=== PATIENT | female | born 1975 | race Caucasian/White ===

== ENCOUNTER 2021-10-22 19:04 | Emergency (ER) | payer BC, SELFPAY ==
[2021-10-22 19:08] VITALS: BP 231/140; PULSE 80; RESP 16; TEMP 36.8; O2SAT 100; BMI 24.7
--- NOTE | 2021-10-22 19:23 | ECG_ITS ---
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 Measurements Intervals [place] Rate: 76 P: 65 MD: 167 QRS: 71 QRSD: 89 T: 46 QT: 421 QTc: 473 Interpretive Statements SINUS RHYTHM LEFT ATRIAL ENLARGEMENT [-0.15mV P-WAVE IN V1/V2] NONSPECIFIC T-WAVE ABNORMALITY No previous ECG available for comparison Electronically Signed On 10-23-2021 13:18:09 CDT by Jamel Gibbons M.D. [email or web address]
--- NOTE | 2021-10-22 19:46 | XRR_ITS ---
PROCEDURE INFORMATION: Exam: XR Chest Exam date and time: 10/22/2021 8:00 PM Age: 46 years old Clinical indication: Other: HTN; Additional info: HTN urgency TECHNIQUE: Imaging protocol: Radiologic exam of the chest. Views: 1 view. COMPARISON: No relevant prior studies available. FINDINGS: Lungs: No consolidation. Pleural spaces: Unremarkable. No pleural effusion. No pneumothorax. Heart/Mediastinum: No cardiomegaly. Bones/joints: No acute findings. XR/XR chest 1V portable [id number] IMPRESSION: No acute findings.
--- NOTE | 2021-10-22 19:46 | CTR_ITS ---
PROCEDURE INFORMATION: Exam: CT Head Without Contrast Exam date and time: 10/22/2021 7:58 PM Age: 46 years old Clinical indication: Pain; Headache; Additional info: Headache, HTN urgency TECHNIQUE: Imaging protocol: Computed tomography of the head without contrast. Radiation optimization: All CT scans at this facility use at least one of these dose optimization techniques: automated exposure control; mA and/or kV adjustment per patient size (includes targeted exams where dose is matched to clinical indication); or iterative reconstruction. COMPARISON: CT head wo/w con [id number] 04/30/2018 11:30 AM RADIATION DOSE METRICS: Total DLP (mGy-cm): 990.48 FINDINGS: Brain: Normal. No hemorrhage. Unremarkable white matter. No mass effect. Cerebral ventricles: No ventriculomegaly. Paranasal sinuses: Visualized sinuses are unremarkable. No fluid levels. Mastoid air cells: Visualized mastoid air cells are well aerated. Bones/joints: Unremarkable. No acute fracture. Soft tissues: Unremarkable. CT/CT head wo con* [id number] IMPRESSION: No acute intracranial abnormality.
[2021-10-22 20:00] VITALS: BP 212/132; PULSE 72; RESP 18
[2021-10-22] MEDS: amlodipine 10 mg Tablet PO (20:09)
[2021-10-22 20:11] VITALS: RESP 18
[2021-10-22] MEDS: morphine 4 mg/mL SDV 1 mL IVP (20:11)
[2021-10-22] MEDS: enalaprilat 1.25 mg/mL Inj IVP (20:11)
[2021-10-22] MEDS: ondansetron 2 mg/ML SDV 2 mL 4 MG IVP (20:11)
[2021-10-22] MEDS: labetalol 5 mg/mL SDV 20mL 20 MG IVP (20:18)
[2021-10-22 20:27] LABS: Basophils % 0.3 %; Eosinophils % 0.4 %; Hematocrit 40.7 % (37.0-47.0); Hemoglobin 13.6 g/dL (11.5-15.3); Lymphocytes # 1.3 10^3/uL (0.8-4.8); Lymphocytes % 12.6 %; Mean Corpuscular HGB Conc 33.4 g/dL (30.0-36.0); Mean Corpuscular Hemoglobin 26.4 pg (28.0-34.0); Mean Platelet Volume 9.4 fL (7.4-10.4); Monocytes # 0.4 10^3/uL (0.2-0.9); Monocytes % 4.4 %; Neutrophils # 8.17 10^3/uL (1.8-7.7); Neutrophils % 81.8 %; Nucleated Red Blood Cells % 0 %; Platelet Count 306 10^3/cmm (130-400); Red Blood Count 5.15 10^6/uL (4.1-5.3); Red Cell Distribution Width 13.9 % (12.1-15.1)
[2021-10-22 20:45] LABS: Alanine Aminotransferase 13 U/L (0-33); Albumin Level 4.4 g/dL (3.5-5.2); Alkaline Phosphatase 83 U/L (35-105); Anion Gap 15.1 (5-19); Aspartate Amino Transferase 21 U/L (0-32); Blood Urea Nitrogen 13 mg/dL (6-20); Calcium 9.6 mg/dL (8.5-10.5); Carbon Dioxide 25 mmol/L (22-29); Chloride 94 mmol/L (98-107); Globulin 3.8 g/dL (1.3-4.6); Glomerular Filtration Rate 77.9 mL/min (90-130); Glucose 120 mg/dL (65-115); Osmolality Calculated 273 mOsm/kg (285-295); Potassium 3.1 mmol/L (3.5-5.1); Sodium 131 mmol/L (136-145); Total Bilirubin 0.7 mg/dL (0.15-1.2); Total Protein 8.2 g/dL (6.6-8.7)
[2021-10-22 21:24] VITALS: BP 163/101; PULSE 67; RESP 14
--- NOTE | 2021-10-22 21:50 | W.ED.HA ---
HPI - Headache General: Chief Complaint: Headache Stated Complaint: high bp Time Seen by Provider: 10/22/21 19:31 History of Present Illness: 46-year-old female with a history of hypertension. She ran out of her medications over a month ago. Today she felt tired, not well, and had a significant headache. She vomited at home. She was seen in urgent care, and sent here, because her blood pressure was significantly high. Here, her blood pressure is 263/140. She continues to complain of a headache. No more vomiting. No weakness. No visual changes. No chest pain. No shortness of breath. MD elicited complaint: headache Pertinent past history: hypertension Onset (ago): hour(s) Onset description: gradually Location: frontal and occipital Quality & Timing: aching and constant Exacerbating factors: none Relieving factors: nothing Context: occurred at rest Associated symptoms: Reports nausea and vomiting; Deny chest pain, confusion, cough, fever(s), lightheadedness, neck stiffness, numbness, short of breath or weakness Treatments prior to arrival: other (aleve) Review of Systems Const: Denies: fever(s) Eyes: Denies: change in vision Card: Denies: chest pain or lightheadedness Resp: Denies: dyspnea, productive cough or non-productive cough GI: Reports: nausea and vomiting Neuro: Denies: confusion [facility] Female Reproductive History: Date of last menstrual period: 10/08/21 Physical Exam Const: COMMON NORMALS: no acute distress GENERAL APPEARANCE: cooperative and ill appearing (mildly); not frail appearing HENMT: COMMON NORMALS: normocephalic, atraumatic and Normal external nose present HEAD & SCALP: normocephalic and atraumatic FACE & SINUS: normal facial exam and face symmetric NOSE: Normal external nose present Eye: COMMON NORMALS: Equal, round and reactive pupils present and EOMs intact bilaterally PUPIL: Yes Equal, round and reactive pupils present Neck/C-Spine: GENERAL: Yes trachea midline Chest: CHEST: Yes Symmetrical chest wall rise Resp: COMMON NORMALS: normal respiratory effort, No retractions, No use of accessory muscles and clear to auscultation bilaterally AUSCULTATION: clear to auscultation bilaterally Cardio: COMMON NORMALS: regular rate and regular rhythm RATE: regular rate RHYTHM: regular rhythm GI: COMMON NORMALS: Normal to inspection, nondistended, normoactive bowel sounds present Extremity: COMMON NORMALS: no pedal edema Neuro: VIVI COMA SCALE: document GCS findings [place] coma scale eye opening: Spontaneous Vivi coma scale verbal response: Orientated [place] coma scale motor response: Obey commands Vivi coma scale total score: 15 SENSORY EXAM: Yes extremities (intact) Psych: COMMON NORMALS: speech normal SPEECH: Yes normal speech Skin: COMMON NORMALS: no rashes or lesions noted GENERAL SKIN EXAM: no rashes or lesions noted Course Vital Signs: Vital signs: Vital Signs Temperature 98.2 F 10/22/21 19:08 Pulse Rate 70 10/22/21 22:01 Respiratory Rate 13 10/22/21 22:01 Blood Pressure 150/91 10/22/21 22:01 Pulse Oximetry 100 10/22/21 19:08 Oxygen Delivery Me thod 10/22/21 19:08 MDM - Headache Medical Decision Making Head CT is negative. Chest x-ray is negative. Potassium is mildly low. BMP is otherwise not remarkable. CBC not remarkable. Blood pressure came down from 260 systolic to 160 systolic. Headache is resolved. She has no other neurological findings. She will be placed back on her blood pressure medication, prescription are made for her. She will check her blood pressure twice daily, and report numbers to her doctor. she knows to return for any return of her symptoms Lab Data : 10/22/21 20:10 10/22/21 20:10 Radiology Impressions Chest X-Ray 10/22/21 19:46 IMPRESSION: No acute findings. Head CT 10/22/21 19:46 IMPRESSION: No acute intracranial abnormality. Laboratory Results WBC 10.0 10^3/uL (4.0-10.0) 10/22/21 20:10 RBC 5.15 10^6/uL (4.1-5.3) 10/22/21 20:10 Hgb 13.6 g/dL (11.5-15.3) 10/22/21 20:10 Hct 40.7 % (37.0-47.0) 10/22/21 20:10 MCV 79.0 fl (81-99) L 10/22/21 20:10 MCH 26.4 pg (28.0-34.0) L 10/22/21 20:10 MCHC 33.4 g/dL (30.0-36.0) 10/22/21 20:10 RDW 13.9 % (12.1-15.1) 10/22/21 20:10 Plt Count 306 10^3/cmm (130-400) 10/22/21 20:10 MPV 9.4 fL (7.4-10.4) 10/22/21 20:10 Neut % (Auto) 81.8 % 10/22/21 20:10 Lymph % (Auto) 12.6 % 10/22/21 20:10 [place] % (Auto) 4.4 % 10/22/21 20:10 Eos % (Auto) 0.4 % 10/22/21 20:10 Baso % (Auto) 0.3 % 10/22/21 20:10 Neut # (Auto) 8.17 10^3/uL (1.8-7.7) H 10/22/21 20:10 Lymph # (Auto) 1.3 10^3/uL (0.8-4.8) 10/22/21 20:10 [place] # (Auto) 0.4 10^3/uL (0.2-0.9) 10/22/21 20:10 Eos # (Auto) 0.0 10^3/uL (0.0-0.8) 10/22/21 20:10 Baso # (Auto) 0.0 10^3/uL (0.0-0.1) 10/22/21 20:10 Nucleated RBC % (auto) 0 % 10/22/21 20:10 Nucleated RBCs # 0.0 /100WBC 10/22/21 20:10 Sodium 131 mmol/L (136-145) L 10/22/21 20:10 Potassium 3.1 mmol/L (3.5-5.1) L 10/22/21 20:10 Chloride 94 mmol/L (98-107) L 10/22/21 20:10 Carbon Dioxide 25 mmol/L (22-29) 10/22/21 20:10 Anion Gap 15.1 (5-19) 10/22/21 20:10 BUN 13 mg/dL (6-20) 10/22/21 20:10 Creatinine 0.8 mg/dL (0.5-0.9) 10/22/21 20:10 GFR Calculation 77.9 mL/min (90-130) L 10/22/21 20:10 Glucose 120 mg/dL (65-115) H 10/22/21 20:10 Calculated Osmolality 273 mOsm/kg (285-295) L 10/22/21 20:10 Calcium 9.6 mg/dL (8.5-10.5) 10/22/21 20:10 Magnesium 2.0 mg/dL (1.7-2.3) 10/22/21 20:10 Total Bilirubin 0.7 mg/dL (0.15-1.2) 10/22/21 20:10 AST 21 U/L (0-32) 10/22/21 20:10 ALT 13 U/L (0-33) 10/22/21 20:10 Alkaline Phosphatase 83 U/L (35-105) 10/22/21 20:10 Total Protein 8.2 g/dL (6.6-8.7) 10/22/21 20:10 Albumin 4.4 g/dL (3.5-5.2) 10/22/21 20:10 Globulin 3.8 g/dL (1.3-4.6) 10/22/21 20:10 Discharge Plan Discharge Patient Disposition: Home Clinical Impression: Hypertensive urgency Condition: Stable Prescriptions: New irbesartan 150 mg tablet 150 mg PO DAILY Qty: 30 0RF hydrochlorothiazide 25 mg tablet 25 mg PO DAILY Qty: 30 0RF metoprolol tartrate 25 mg tablet 25 mg PO BID Qty: 60 0RF Discharge Orders: Discharge ED (Routine); Ordered 10/22/21 Ordered By: Baldev Khan Referrals: Igor Mariano MD [Primary Care Provider] - 4-7 days Patient Instructions: Hypertensive Crisis (ED) Activity Restrictions/Additional Instructions: Return for worsening headache, chest discomfort, mental status changes, vision changes, any other concerning symptoms. Fill your medications as directed. After taking your medication tomorrow, check your blood pressure twice daily, and report numbers to your physician next week. 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
[2021-10-22 22:01] VITALS: BP 150/91; PULSE 70; RESP 13
== END 2021-10-22 22:02 | disposition home or self-care (01) ==
PROVIDERS: Emergency Provider Emergency Medicine; PCP Family Medicine
DX: I16.0 Hypertensive urgency (principal); Z20.822 Contact with and (suspected) exposure to COVID-19
CPT/HCPCS: 70450; 71045; 80053; 83735; 85025; 87426; 93005; 96374; 96375; 99285; J2270; J2405; J3490

== ENCOUNTER 2021-10-23 06:15 | Observation (INO) | payer BC, SELFPAY ==
[2021-10-23] VITALS (8 sets, daily range): BP systolic 134–164; BP diastolic 78–103; PULSE 62–84; RESP 15–18; TEMP 36.4–37.1; O2SAT 95–99; BMI 24.7
--- NOTE | 2021-10-23 06:29 | ED_ITS ---
HPI - Weakness General: Chief complaint: Weakness Stated complaint: Nausea and weakness Time Seen by Provider: 10/23/21 06:17 History of Present Illness: 46-year-old female presents with generalized weakness. Nausea and vomiting. Patient had an episode last night where she was just weak and collapsed after vomiting. She just feels really weak and is having hard time getting up. Patient was seen last night in the ER with some nausea and vomiting and at that time her blood pressure was in the 260s. She was discharged home her blood pressure was in the 160s and she was feeling fine. Throughout the night she had gotten up when had the episode just really weak and collapsing. She had a crawl to the hallway because she was just too weak to stand. She continues to just have the generalized weakness upon arrival. She denies any headache, chest pain, fever, chills. Associated symptoms: Reports nausea and vomiting; Denies chest pain, chills, dysuria, fever(s) or headache(s) Review of Systems Const: Reports: malaise; Denies: fever(s) or chills Eyes: Denies: change in vision or blurry vision ENMT: Denies: throat pain Card: Denies: chest pain, palpitations or irregular heart rhythm Resp: Denies: dyspnea, productive cough or chest congestion GI: Reports: nausea and vomiting; Denies: abdominal pain or diarrhea : Denies: flank pain, difficulty voiding or dysuria Musc: Denies: neck pain or back pain Skin/Breast: Denies: rash or erythema Neuro: Reports: other (Generalized weakness); Denies: headache(s) or numbness in extremities Psych: Denies: anxiety or depression All/Imm: Denies: urticaria [facility] Female Reproductive History: Date of last menstrual period: 10/08/21 Physical Exam Const: COMMON NORMALS: patient oriented x3 and no limitations GENERAL APPEARANCE: other (Not feeling well, ) HENMT: COMMON NORMALS: normocephalic, atraumatic, hearing grossly normal bilaterally and moist oral mucous membranes HEAD & SCALP: normal to inspection, normocephalic and atraumatic Eye: COMMON NORMALS: Equal, round and reactive pupils present and EOMs intact bilaterally PUPIL: Yes Equal, round and reactive pupils present Neck/C-Spine: COMMON NORMALS: full ROM, no lymphadenopathy, supple, no meningeal signs and no JVD Lymph: LYMPHATIC: no lymphadenopathy noted Chest: COMMONS NORMALS: normal inspection of the chest Resp: COMMON NORMALS: normal respiratory effort, No retractions, No use of accessory muscles and clear to auscultation bilaterally AUSCULTATION: clear to auscultation bilaterally Cardio: COMMON NORMALS: no JVD, regular rate and regular rhythm RATE: regular rate RHYTHM: regular rhythm GI: COMMON NORMALS: Normal to inspection, nondistended, normoactive bowel sounds present, Soft to palpation and non-tender PALPATION: Yes Soft to palpation Extremity: COMMON NORMALS: full ROM and capillary refill normal Neuro: COMMON NORMALS: patient oriented x3, CN's II-XII intact bilaterally, moves all extremities and no focal motor deficits MENINGEAL SIGNS: Yes no me ningeal signs MOTOR EXAM: Other motor observations present (generalized w eakness) Course Vital Signs: Vital signs: Vital Signs Temperature 97.6 F 10/23/21 06:21 Pulse Rate 62 10/23/21 08:24 Respiratory Rate 16 10/23/21 08:24 Blood Pressure 164/103 10/23/21 08:24 Pulse Oximetry 98 10/23/21 08:24 Oxygen Delivery Me thod 10/23/21 06:39 MDM - Weakness Medical Decision Making Patient with acute kidney injury likely from enalapril and other medications that she received last night. Patient received 2 L IV bolus with creatinine trending down from 1.6-1.4. Patient however still reports that she is having difficulty urinating. We will admit patient to observation for further evaluation probable kidney ultrasound. Patient's stable and discharged home discussed with Dr. Oden who was in agreement of observation admission Lab Data : 10/23/21 06:34 10/23/21 08:34 Laboratory Results WBC 9.5 10^3/uL (4.0-10.0) 10/23/21 06:34 RBC 4.59 10^6/uL (4.1-5.3) 10/23/21 06:34 Hgb 12.2 g/dL (11.5-15.3) 10/23/21 06:34 Hct 36.1 % (37.0-47.0) L 10/23/21 06:34 MCV 78.6 fl (81-99) L 10/23/21 06:34 MCH 26.6 pg (28.0-34.0) L 10/23/21 06:34 MCHC 33.8 g/dL (30.0-36.0) 10/23/21 06:34 RDW 14.1 % (12.1-15.1) 10/23/21 06:34 Plt Count 284 10^3/cmm (130-400) 10/23/21 06:34 MPV 9.6 fL (7.4-10.4) 10/23/21 06:34 Neut % (Auto) 68.9 % 10/23/21 06:34 Lymph % (Auto) 22.6 % 10/23/21 06:34 Lane % (Auto) 6.1 % 10/23/21 06:34 Eos % (Auto) 1.8 % 10/23/21 06:34 Baso % (Auto) 0.3 % 10/23/21 06:34 Neut # (Auto) 6.51 10^3/uL (1.8-7.7) 10/23/21 06:34 Lymph # (Auto) 2.1 10^3/uL (0.8-4.8) 10/23/21 06:34 Lane # (Auto) 0.6 10^3/uL (0.2-0.9) 10/23/21 06:34 Eos # (Auto) 0.2 10^3/uL (0.0-0.8) 10/23/21 06:34 Baso # (Auto) 0.0 10^3/uL (0.0-0.1) 10/23/21 06:34 Nucleated RBC % (auto) 0 % 10/23/21 06:34 Nucleated RBCs # 0.0 /100WBC 10/23/21 06:34 Sodium 132 mmol/L (136-145) L 10/23/21 08:34 Potassium 3.2 mmol/L (3.5-5.1) L 10/23/21 08:34 Chloride 97 mmol/L (98-107) L 10/23/21 08:34 Carbon Dioxide 23 mmol/L (22-29) 10/23/21 08:34 Anion Gap 15.2 (5-19) 10/23/21 08:34 BUN 18 mg/dL (6-20) 10/23/21 08:34 Creatinine 1.4 mg/dL (0.5-0.9) H 10/23/21 08:34 GFR Calculation 40.8 mL/min (90-130) L 10/23/21 08:34 Glucose 89 mg/dL (65-115) 10/23/21 08:34 Calculated Osmolality 275 mOsm/kg (285-295) L 10/23/21 08:34 Lactic Acid 2.7 mmol/L (0.5-2.2) H 10/23/21 06:34 Calcium 9.0 mg/dL (8.5-10.5) 10/23/21 08:34 Magnesium 2.1 mg/dL (1.7-2.3) 10/23/21 06:34 Total Bilirubin 0.6 mg/dL (0.15-1.2) 10/23/21 06:34 AST 18 U/L (0-32) 10/23/21 06:34 ALT 11 U/L (0-33) 10/23/21 06:34 Alkaline Phosphatase 67 U/L (35-105) 10/23/21 06:34 Troponin T Baseline 15 ng/L (0-10) H 10/23/21 06:34 Troponin T 120 Minute 15.35 ng/L (0-10) H 10/23/21 08:34 Delta Troponin T 0.35 ABS# (0-10) 10/23/21 08:34 C-Reactive Protein 3.9 mg/L (0.0-4.9) 10/23/21 06:34 Total Protein 7.2 g/dL (6.6-8.7) 10/23/21 06:34 Albumin 4.0 g/dL (3.5-5.2) 10/23/21 06:34 Globulin 3.2 g/dL (1.3-4.6) 10/23/21 06:34 HCG, Qual Negative (Negative) 10/23/21 10:59 SARS-CoV-2 Ag (Rapid) Negative (Negative) 10/23/21 06:34 EKG Data EKG 1: I personally reviewed and interpreted this EKG as follows: EKG interpretation date: 10/23/21 EKG interpretation time: 07:05 Interpretation: sinus rhythm, first degree block, non specific changes rate 68, MI 213, QTc 502 Discharge Plan Discharge Patient Disposition: Placed in Observation Clinical Impression: Acute kidney injury (nontraumatic), Hypertension, uncontrolled Coding Level of Care Code ED Mortgage Coordinator for Chg Fwd Exam Comprehensive
[2021-10-23] MEDS: lactated ringers 1,000 ML 999 ML IV ×2 (06:37→07:42)
[2021-10-23] MEDS: ondansetron 2 mg/ML SDV 2 mL 4 MG IVP (06:37)
[2021-10-23 06:42] LABS: Basophils % 0.3 %; Eosinophils # 0.2 10^3/uL (0.0-0.8); Eosinophils % 1.8 %; Hematocrit 36.1 % (37.0-47.0); Hemoglobin 12.2 g/dL (11.5-15.3); Lymphocytes # 2.1 10^3/uL (0.8-4.8); Lymphocytes % 22.6 %; Mean Corpuscular HGB Conc 33.8 g/dL (30.0-36.0); Mean Corpuscular Hemoglobin 26.6 pg (28.0-34.0); Mean Corpuscular Volume 78.6 fl (81-99); Mean Platelet Volume 9.6 fL (7.4-10.4); Monocytes # 0.6 10^3/uL (0.2-0.9); Monocytes % 6.1 %; Neutrophils # 6.51 10^3/uL (1.8-7.7); Neutrophils % 68.9 %; Nucleated Red Blood Cells % 0 %; Platelet Count 284 10^3/cmm (130-400); Red Blood Count 4.59 10^6/uL (4.1-5.3); Red Cell Distribution Width 14.1 % (12.1-15.1); White Blood Count 9.5 10^3/uL (4.0-10.0)
--- NOTE | 2021-10-23 06:50 | PC.NURSE ---
report given to jess del toro at this time.
--- NOTE | 2021-10-23 07:03 | ECG_ITS ---
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 Measurements Intervals [place] Rate: 68 P: 58 DC: 213 QRS: 57 QRSD: 92 T: 19 QT: 485 QTc: 516 Interpretive Statements SINUS RHYTHM WITH FIRST DEGREE AV BLOCK POSSIBLE LEFT ATRIAL ENLARGEMENT [-0.1mV P-WAVE IN V1/V2] POSSIBLE LEFT VENTRICULAR HYPERTROPHY [VOLTAGE CRITERIA PLUS LAE OR QRS WIDENING] NONSPECIFIC T-WAVE ABNORMALITY PROLONGED QT INTERVAL CRITICAL TEST RESULT Compared to ECG 10/22/2021 19:27:38 First degree AV block now present Prolonged QT interval now present T-wave abnormality still present Electronically Signed On 10-23-2021 13:17:27 CDT by Jamel Gibbons M.D. [id number]
[2021-10-23 07:05] LABS: SARS Covid-2 Antigen Negative (Negative)
[2021-10-23 07:13] LABS: Lactic Sepsis W/Reflex 2.7 mmol/L (0.5-2.2)
[2021-10-23 07:14] LABS: Alanine Aminotransferase 11 U/L (0-33); Alkaline Phosphatase 67 U/L (35-105); Aspartate Amino Transferase 18 U/L (0-32); Blood Urea Nitrogen 19 mg/dL (6-20); C Reactive Protein 3.9 mg/L (0.0-4.9); Calcium 9.5 mg/dL (8.5-10.5); Carbon Dioxide 23 mmol/L (22-29); Chloride 94 mmol/L (98-107); Creatinine Clr Calc Pharmacy 43.3741; Globulin 3.2 g/dL (1.3-4.6); Glucose 105 mg/dL (65-115); Magnesium 2.1 mg/dL (1.7-2.3); Osmolality Calculated 275 mOsm/kg (285-295); Sodium 131 mmol/L (136-145); Total Bilirubin 0.6 mg/dL (0.15-1.2); Total Protein 7.2 g/dL (6.6-8.7)
[2021-10-23 07:15] LABS: Troponin(5th) Baseline 15 ng/L (0-10)
--- NOTE | 2021-10-23 07:18 | PC.NURSE ---
Patient on continuous CM and SPo2
--- NOTE | 2021-10-23 07:19 | PC.NURSE ---
Patient resting in bed with equal bilateral chest rise. No needs at this time.
[2021-10-23 07:25] LABS: Anion Gap 17.1 (5-19); Potassium 3.1 mmol/L (3.5-5.1)
[2021-10-23 07:55] LABS: Reflex Lactate Order REFLEX LACTIC ORDERD
[2021-10-23 09:17] LABS: Troponin 5 2HR 15.35 ng/L (0-10)
[2021-10-23 09:23] LABS: Anion Gap 15.2 (5-19); Blood Urea Nitrogen 18 mg/dL (6-20); Carbon Dioxide 23 mmol/L (22-29); Chloride 97 mmol/L (98-107); Glomerular Filtration Rate 40.8 mL/min (90-130); Glucose 89 mg/dL (65-115); Osmolality Calculated 275 mOsm/kg (285-295); Potassium 3.2 mmol/L (3.5-5.1); Sodium 132 mmol/L (136-145)
[2021-10-23 09:25] LABS: Troponin 5 2HR Delta 0.35 ABS# (0-10)
[2021-10-23] MEDS: sodium chloride 0.9% 1,000 ML 125 ML IV (10:56)
[2021-10-23 11:21] LABS: HCG, Serum Qual Negative (Negative)
[2021-10-23 13:02] LABS: Troponin 5 6HR 16.44 ng/L (0-10); Troponin 5 6HR Delta 1.44 ng/L (0-12)
[2021-10-23] MEDS: sodium chloride 0.9% 1,000 ML 100 ML IV ×2 (14:02→20:33)
--- NOTE | 2021-10-23 14:17 | USCV_ITS ---
Verona Ramos Age: 46 Gender: F : 1975 Exam Date: 10/23/2021 14:35 Ordering Phys: Katarzyna Oden MD Technologist: Marisa De La Cruz [place] [facility] [place]: Essential HTN Aortic Velocity @ SMA (cm/s) 69 RIGHT KIDNEY LEFT KIDNEY Velocity (cm/s) Velocity (cm/s) Sys/Scott Sys/Scott Resistive Index Resistive Index 54.3 / 15.3 0.72 Proximal Renal Artery 58.8 / 16.4 0.72 45.9 / 18.1 0.61 Mid Renal Artery 60.3 / 13.0 0.78 41.9 / 17.8 0.57 Distal Renal Artery 66.9 / 23.1 0.65 32.8 / 10.8 0.67 Hilar 74.4 / 28.9 0.61 31.5 / 8.3 0.74 Upper Pole 37.9 / 8.9 0.77 29.9 / 9.9 0.67 Mid Pole 24.0 / 9.9 0.59 35.7 / 11.2 0.68 Lower Pole 25.0 / 7.0 0.72 0.80 Renal Aortic Ratio 0.97 Accleration Index (cm/sec2) 379.00 Hilar 5027.0 0 445.00 Upper Pole 716.00 309.00 Mid Pole 1864.0 0 598.00 Lower Pole 328.00 106.5 Kidney Length (mm) 103.6 FINDINGS No evidence of abdominal aortic aneurysm. There is no evidence of hemodynamically significant right renal artery stenosis. There is no evidence of hemodynamically significant left renal artery stenosis. CONCLUSIONS No evidence of hemodynamically significant renal artery stenosis bilaterally. Dr. Janette Cruz DO (Electronically Signed) Final Date: 24 October 2021 07:38 S
--- NOTE | 2021-10-23 14:25 | PM.HP ---
Providers/Chief Complaint Admitting Physician: Katarzyna Oden MD Primary Care Provider: Igor Mariano MD Chief Complaint: Nausea and weakness History of Present Illness Verona Ramos is a 46 year old female with a past medical history of hypertension currently on 3 antihypertensives who presented originally to the emergency room last night with systolic blood pressure of 260 millimeters mercury. At that time her symptoms included intense headache, nausea vomiting. She received treatment with amlodipine 10 mg, labetalol 20 mg IV and enalaprilat 1.25 mg IV. With these interventions her systolic blood pressure came down to 160 mmHg and she was discharged home. Upon returning home she states she slept for a few hours, however on the upon waking up she again felt extreme weakness and fatigue and needed to be helped to the bathroom by her . She had few episodes of vomiting again. She returned to the emergency room with these symptoms. It appears she had some missed doses of anti hypertensives over the past week. Currently BP is 163/102mmhg. She denies any chest pain, dyspnea, palpitations. Troponin series is without significant delta. Lactate was elevated at 2.7. She has FENG with cr 1.6 this morning. She is unsure if she has had a work up for secondary HTN. She was reportedly told its genetic since her mother from HTN complications at age 51. She has had 4 children, first at age 23, last one at age 29. She was diagnosed with HTN at age 38. States she had issues with pedal edema and perhaps some elevated BP with her last but does not recall the details. She is not currently . Review of Systems General: Reports: 10 or more systems reviewed and unremarkable except in HPI and below Const: Denies: fever(s), chills or body aches Eyes: Denies: change in vision, blurry vision or photophobia ENMT: Reports: hoarseness; Denies: throat pain, enlarged tonsils, odynophagia or nasal congestion Card: Denies: chest pain, palpitations, irregular heart rhythm, edema, swelling of feet/ankles, lightheadedness, pre-syncope, dyspnea on exertion or orthopnea Resp: Denies: dyspnea, productive cough, non-productive cough, wheezing, stridor, pain on inspiration, change in phlegm color, hemoptysis or chest congestion GI: Denies: abdominal pain, nausea, vomiting, hematemesis, coffee ground emesis, dysphagia, heartburn, diarrhea, constipation, GI cramping, change in stool character, hematochezia or melena : Denies: flank pain, difficulty voiding, dysuria, urinary frequency, urinary urgency, urinary hesitancy or hematuria Musc: Denies: neck pain, back pain, extremity pain, joint swelling, joint warmth or deformity Neuro: Denies: headache(s), numbness in extremities, weakness in extremities, sensory changes, difficulty walking, frequent falls, dizziness, vertigo, behavioral changes, Slurred speech present or seizure-like activity Psych: Denies: anxiety, depression, suicidal ideation or homicidal ideation Endo: Denies: polyuria, polydipsia, tired all the time, cold intolerance or hot flashes [place]/Lymph: Denies: easy bruising or easy bleeding Medications/Allergies Home Medications Medication Instructions Recorded Confirmed Last Taken Type hydrochlorothiazide 25 mg tablet 25 mg PO DAILY #30 tabs 10/22/21 10/23/21 Unknown Rx irbesartan 150 mg tablet 150 mg PO DAILY #30 tabs 10/22/21 10/23/21 Unknown Rx metoprolol tartrate 25 mg tablet 25 mg PO BID #60 tabs 10/22/21 10/23/21 10/22/21 Rx Allergies Allergy/AdvReac Type Severity Reaction Status Date / Time Penicillins Allergy ALGY-Hives Verified 10/22/21 18:12 PFSH Acute Female Reproductive History: Date of last menstrual period: 10/08/21 Vitals/I&O/Wt Last Vital Signs Temp 97.6 F 10/23/21 06:21 Pulse 84 10/23/21 12:52 Resp 18 10/23/21 12:50 BP 134/81 10/23/21 12:52 Pulse Ox 95 10/23/21 12:52 O2 Del Method 10/23/21 14:06 10/22/21 10/23/21 10/23/21 22:59 06:59 14:59 Intake Total 3000 / 3000 Balance 3000 / 3000 Weight last 48 hrs Weight 67.585 kg Weight 67.585 kg Physical Exam Narrative: General: No acute distress, AO x3 HEENT: PERRLA, pupils bilaterally equal and reactive, pallors not present Chest: Normal vesicular breath sounds, no added sounds, equal good air entry bilaterally CVS: S1-S2 regular, no murmurs, no tachycardia, no gallops, no rubs Abdomen: Soft, nontender, no organomegaly, bowel sounds present Neuro: No focal deficits, no facial deformity, AO x3, power 5/5 in all limbs Data : 10/23/21 06:34 10/23/21 08:34 A&P Assessment and plan (1) Acute kidney injury (nontraumatic): FENG with cr 1.6 (baseline 0.8 yesterday). likely from a combination of dehydration from vomiting, Enalaprilat given last evening for BP control vs end organ damage from hypertensive urgency. BP better controlled today. will continue her home dose of amlodipine and metoprolol while holding irbesartan. IVF NS @ 100 cc/hr has not had urine output yet but getting the urge to go. Will monitor strict I/O Evaluation for renal artery stenosis with renal artery doppler ROBI panel to evaluate for vasculitis Recommend outpatient follow up with PCP to complete work up for secondary HTN Status: Acute (2) Hypertension, uncontrolled: currently better controlled See H&P above Status: Acute (3) Nausea & vomiting: may be related to viral gastroenteritis vs hypertnsive urgency. symptomatic supportive treatment for now Zofran prn Iv hydration Ct head withotu acute events EKG without acute ST - T wave changes, possible LVH,, negative deltas at 2 and 6 hrs Status: Acute (4) Elevated lactic acid level: likely 2/2 dehydartion repeat after IVF Status: Acute Attestations Medical Necessity Statement*: anticipate less than 2 midnight admission for FENG, lactic acidosis, dehydartion, needs iv fluids, monitor urine output Coding Level of Care Code Acute [employer] for [facility] Fwd Diagnoses Acute kidney injury (nontraumatic) N17.9 Hypertension, uncontrolled I10 Nausea & vomiting R11.2 Elevated lactic acid level R79.89
[2021-10-23] MEDS: potassium chloride ER 20 mEq Tablet 40 MEQ PO (16:57)
[2021-10-23] MEDS: metoprolol tartrate 25 mg Tablet PO (16:57)
[2021-10-23] MEDS: pantoprazole DR 40 mg Tablet PO (16:57)
[2021-10-23 17:05] LABS: Add Urine Microscopic? NO; Charge for UA Resulting for Rev
[2021-10-23 17:17] LABS: Bilirubin Urine Neg (Negative); Blood Urine Neg (Negative); Glucose Urine UA Norm (Normal); Ketones Urine Negative (Negative); Leukocyte Esterase Urine Negative (Negative); Nitrate Urine Negative (Negative); Protein Urine Neg (Negative); Specific Gravity, Urine 1.005 (1.005-1.030); Urine Appearance Clear (CLEAR); Urine Color Colorless (Yellow); Urobilinogen Urine Norm (Negative); pH Urine 6 (5-7)
[2021-10-23 18:09] LABS: Lactate (Lactic Acid level) 1.5 mmol/L (0.5-2.2)
[2021-10-23 18:12] LABS: Erythrocyte Sedimentation Rate 5 mm/hr (0-15)
[2021-10-24 04:33] VITALS: BP 147/86; PULSE 87; RESP 16; TEMP 37; O2SAT 97
[2021-10-24 05:32] LABS: Alanine Aminotransferase 8 U/L (0-33); Albumin Level 3.1 g/dL (3.5-5.2); Alkaline Phosphatase 50 U/L (35-105); Anion Gap 11.7 (5-19); Aspartate Amino Transferase 13 U/L (0-32); Blood Urea Nitrogen 15 mg/dL (6-20); Calcium 7.9 mg/dL (8.5-10.5); Carbon Dioxide 21 mmol/L (22-29); Chloride 110 mmol/L (98-107); Creatinine Clr Calc Pharmacy 77.1095; Globulin 2.1 g/dL (1.3-4.6); Glucose 81 mg/dL (65-115); Osmolality Calculated 288 mOsm/kg (285-295); Potassium 3.7 mmol/L (3.5-5.1); Sodium 139 mmol/L (136-145); Total Bilirubin 0.3 mg/dL (0.15-1.2); Total Protein 5.2 g/dL (6.6-8.7)
[2021-10-24 07:42] VITALS: BP 162/94; PULSE 76; RESP 15; TEMP 36.5; O2SAT 96
[2021-10-24] MEDS: metoprolol tartrate 25 mg Tablet PO (09:25)
[2021-10-24] MEDS: amlodipine 10 mg Tablet PO (09:25)
[2021-10-24] MEDS: pantoprazole DR 40 mg Tablet PO (09:26)
--- NOTE | 2021-10-24 10:28 | P.DS_ITS ---
Discharge Providers Date of Admission: 10/23/21 11:27 Date of Discharge: October 24, 2021 Attending Provider at Admission: Katarzyna Oden MD Attending Provider at Discharge: Gerardo Sherman Primary Care Provider: Igor Mariano MD Diagnoses at Discharge Discharge Diagnosis (1) Acute kidney injury (nontraumatic): Status: Acute (2) Hypertension, uncontrolled: Status: Acute (3) Nausea & vomiting: Status: Acute (4) Elevated lactic acid level: Status: Acute Reason for Visit Reason for Visit: Nausea and weakness Hospital Course Hospital Course Pleasant 46-year lady with history of HTN presented with uncontrolled hypertension requiring combination of oral and IV medications will bring down the blood pressure, returns to ER with generalized weakness, fatigability, few episodes of vomiting. Minimal cardiac troponin elevation without significant delta. QT prolongation on EKG. With lactic acid is 2.7, acute kidney injury 1 .6. She has been afebrile, without signs of infection. Urinalysis unremarkable. On 10/[address] was unremarkable. Chest x-ray without acute findings. HCTZ and irbesartan were held. She was continued on amlodipine, metoprolol. Received IV fluid challenge with improvement/resolution of FENG. Evaluation with renal artery duplex revealed no renal artery stenosis. ROBI panel was sent and pending, please follow-up results. Please continue evaluation for any secondary causes contributing to her hypertension. This morning she had no further nausea or vomiting. She overall feels still slightly fatigued, but improving. Physical Exam Const: COMMON NORMALS: patient oriented x3 and alert GENERAL APPEARANCE: cooperative ORIENTATION/CONSCIOUSNESS: Yes awake HENMT: COMMON NORMALS: oropharynx normal Neck/C-Spine: COMMON NORMALS: no JVD Resp: COMMON NORMALS: normal respiratory effort and clear to auscultation bilaterally AUSCULTATION: clear to auscultation bilaterally Cardio: COMMON NORMALS: no JVD, regular rhythm, S1 normal heart sound present, S2 normal heart sound present and No murmurs present (Cardio) RHYTHM: regular rhythm HEART SOUNDS: S1 normal heart sound present and S2 normal heart sound present GI: COMMON NORMALS: Normal to inspection, nondistended, normoactive bowel sounds present, Soft to palpation and non-tender PALPATION: Yes Soft to palpation Extremity: COMMON NORMALS: no joint enlargement and no pedal edema Neuro: COMMON NORMALS: patient oriented x3 and moves all extremities SENSORIUM/ORIENTATION: Yes alert Skin: COMMON NORMALS: no rashes or lesions noted GENERAL SKIN EXAM: no rashes or lesions noted Discharge Data Studies Completed and Pending Completed Studies During Hospitalization Category Date Time Status CV renal doppler [id number] Routine Ultrasound 10/23/21 14:17 Completed Pending at discharge Category Date Time Status ROBI Profile Rheumatology Routine Lab 10/23/21 17:17 Received Laboratory Results WBC 9.5 10^3/uL (4.0-10.0) 10/23/21 06:34 RBC 4.59 10^6/uL (4.1-5.3) 10/23/21 06:34 Hgb 12.2 g/dL (11.5-15.3) 10/23/21 06:34 Hct 36.1 % (37.0-47.0) L 10/23/21 06:34 MCV 78.6 fl (81-99) L 10/23/21 06:34 MCH 26.6 pg (28.0-34.0) L 10/23/21 06:34 MCHC 33.8 g/dL (30.0-36.0) 10/23/21 06:34 RDW 14.1 % (12.1-15.1) 10/23/21 06:34 Plt Count 284 10^3/cmm (130-400) 10/23/21 06:34 MPV 9.6 fL (7.4-10.4) 10/23/21 06:34 Neut % (Auto) 68.9 % 10/23/21 06:34 Lymph % (Auto) 22.6 % 10/23/21 06:34 [place] % (Auto) 6.1 % 10/23/21 06:34 Eos % (Auto) 1.8 % 10/23/21 06:34 Baso % (Auto) 0.3 % 10/23/21 06:34 Neut # (Auto) 6.51 10^3/uL (1.8-7.7) 10/23/21 06:34 Lymph # (Auto) 2.1 10^3/uL (0.8-4.8) 10/23/21 06:34 [place] # (Auto) 0.6 10^3/uL (0.2-0.9) 10/23/21 06:34 Eos # (Auto) 0.2 10^3/uL (0.0-0.8) 10/23/21 06:34 Baso # (Auto) 0.0 10^3/uL (0.0-0.1) 10/23/21 06:34 Nucleated RBC % (auto) 0 % 10/23/21 06:34 Nucleated RBCs # 0.0 /100WBC 10/23/21 06:34 ESR 5 mm/hr (0-15) 10/23/21 17:17 Sodium 139 mmol/L (136-145) 10/24/21 04:53 Potassium 3.7 mmol/L (3.5-5.1) 10/24/21 04:53 Chloride 110 mmol/L (98-107) H 10/24/21 04:53 Carbon Dioxide 21 mmol/L (22-29) L 10/24/21 04:53 Anion Gap 11.7 (5-19) 10/24/21 04:53 BUN 15 mg/dL (6-20) 10/24/21 04:53 Creatinine 0.9 mg/dL (0.5-0.9) 10/24/21 04:53 GFR Calculation 68.0 mL/min (90-130) L 10/24/21 04:53 Glucose 81 mg/dL (65-115) 10/24/21 04:53 Calculated Osmolality 288 mOsm/kg (285-295) 10/24/21 04:53 Lactic Acid 2.7 mmol/L (0.5-2.2) H 10/23/21 06:34 Lactate 1.5 mmol/L (0.5-2.2) 10/23/21 17:17 Calcium 7.9 mg/dL (8.5-10.5) L 10/24/21 04:53 Magnesium 2.1 mg/dL (1.7-2.3) 10/23/21 06:34 Total Bilirubin 0.3 mg/dL (0.15-1.2) 10/24/21 04:53 AST 13 U/L (0-32) 10/24/21 04:53 ALT 8 U/L (0-33) 10/24/21 04:53 Alkaline Phosphatase 50 U/L (35-105) 10/24/21 04:53 Troponin T Baseline 15 ng/L (0-10) H 10/23/21 06:34 Troponin T 120 Minute 15.35 ng/L (0-10) H 10/23/21 08:34 Delta Troponin T 0.35 ABS# (0-10) 10/23/21 08:34 Troponin T Hi Sens 6Hr 16.44 ng/L (0-10) H 10/23/21 12:27 Troponin T Hi Sens 6Hr Delta 1.44 ng/L (0-12) 10/23/21 12:27 C-Reactive Protein 3.9 mg/L (0.0-4.9) 10/23/21 06:34 Total Protein 5.2 g/dL (6.6-8.7) L D 10/24/21 04:53 Albumin 3.1 g/dL (3.5-5.2) L 10/24/21 04:53 Globulin 2.1 g/dL (1.3-4.6) 10/24/21 04:53 HCG, Qual Negative (Negative) 10/23/21 10:59 Urine Color Colorless (Yellow) 10/23/21 16:28 Urine Appearance Clear (CLEAR) 10/23/21 16:28 Urine pH 6 (5-7) 10/23/21 16:28 Ur Specific [place] 1.005 (1.005-1.030) 10/23/21 16:28 Urine Protein Neg (Negative) 10/23/21 16:28 Urine Glucose (UA) Norm (Normal) 10/23/21 16:28 Urine Ketones Negative (Negative) 10/23/21 16:28 Urine Blood Neg (Negative) 10/23/21 16:28 Urine Nitrate Negative (Negative) 10/23/21 16:28 Urine Bilirubin Neg (Negative) 10/23/21 16:28 Urine Urobilinogen Norm mg/dL (Negative) 10/23/21 16:28 Ur Leukocyte Esterase Negative (Negative) 10/23/21 16:28 SARS-CoV-2 Ag (Rapid) Negative (Negative) 10/23/21 06:34 Vitals Last Vital Signs Temp 97.7 F 10/24/21 07:42 Pulse 76 10/24/21 07:42 Resp 15 10/24/21 07:42 BP 162/94 10/24/21 07:42 Pulse Ox 96 10/24/21 07:42 O2 Del Method 10/24/21 07:42 Discharge Plan Discharge Patient Disposition: Home Condition: Stable Prescriptions: New amlodipine 10 mg Tablet 10 mg PO DAILY Qty: 90 0RF Continued metoprolol tartrate 25 mg tablet 25 mg PO BID Qty: 60 0RF Discontinued irbesartan 150 mg tablet 150 mg PO DAILY Qty: 30 0RF hydrochlorothiazide 25 mg tablet 25 mg PO DAILY Qty: 30 0RF Discharge Orders: Discharge Order (Routine); Ordered 10/24/21 Ordered By: Gerardo Sherman Referrals: Igor Mariano MD [Primary Care Provider] - 10/28/21 10:15 am Discharge Diet: Cardiac Discharge Activity: Increase activity as tolerated Patient Instructions: Metoprolol (By mouth), Amlodipine (By mouth), Acute Kidney Injury (GEN), Chronic Hypertension (GEN), Hypertensive Crisis (GEN), Fall Prevention (GEN) Activity Restrictions/Additional Instructions: Please measure your blood pressure twice daily at home, record values to bring to her appointment. Stop irbesartan and HCTZ for now. Please discuss with your primary doctor when irbesartan may be safe to resume. Have your primary doctor reassess your kidney function at next appointment. Please follow-up with your primary doctor for further work-up of any secondary causes that may be contributing to hypertension including evaluation of aldosterone and renin. Your kidney duplex ultrasound did not show renal artery stenosis. [employer] ROBI panel has been sent and is pending. Please follow-up with your primary doctor regarding results. Return to the hospital in case of any concerning symptoms or worsening of condition. Discharge Attestations Time Spent in Discharge Care*: greater than 30 min Quality Metrics Clinical Quality Measures [ No reported AMI, CVA or VTE this stay] Coding Level of Care Code Acute Chg FW DC note Diagnoses Acute kidney injury (nontraumatic) N17.9 Hypertension, uncontrolled I10 Nausea & vomiting R11.2 Elevated lactic acid level R79.89
[2021-10-24 10:58] VITALS: BP 162/94; PULSE 76; RESP 15; TEMP 36.5; O2SAT 96
[2021-10-25 15:37] LABS: CENTROMERE B ANTIBODY 3.0 POS AI (<1.0 NEG); JO-1 ANTIBODY <1.0 NEG AI (<1.0 NEG); RNP ANTIBODY <1.0 NEG AI (<1.0 NEG); SCL-70 ANTIBODY <1.0 NEG AI (<1.0 NEG); SJOGREN'S ANTIBODY (SS-A) <1.0 NEG AI (<1.0 NEG); SM ANTIBODY <1.0 NEG AI (<1.0 NEG); SS-B <1.0 NEG AI (<1.0 NEG)
[2021-10-25 16:27] LABS: THYROID PEROXIDASE ANTIBODIES 1 IU/mL (<9)
[2021-10-26 12:03] LABS: ANA PATTERN Nuclear, Homogeneous; ANA SCREEN, IFA POSITIVE (NEGATIVE)
[2021-10-26 12:34] LABS: COMPLEMENT COMPONENT C3C 121 mg/dL (83-193); COMPLEMENT COMPONENT C4C 22 mg/dL (15-57)
[2021-10-26 12:48] LABS: COMPLEMENT, TOTAL (CH50) 56 U/mL (31-60)
[2021-10-27 14:48] LABS: DNA AB (DS) CRITHIDIA,IFA NEGATIVE (NEGATIVE)
== END 2021-10-24 10:59 | disposition home or self-care (01) ==
LOC: ER 11:27 → MEDSURG 12:46
PROVIDERS: Admitting Provider Student in an Organized Health Care Education/Training Program; Emergency Provider Student in an Organized Health Care Education/Training Program; PCP Family Medicine; Visit Provider Internal Medicine
DX: N17.9 Acute kidney failure, unspecified (principal); I10 Essential (primary) hypertension; R11.2 Nausea with vomiting, unspecified; R74.02 Elevation of levels of lactic acid dehydrogenase [LDH]; I44.0 Atrioventricular block, first degree; I45.81 Long QT syndrome; Z88.0 Allergy status to penicillin; Z82.49 Family history of ischemic heart disease and other diseases of the circulatory system
CPT/HCPCS: 36415; 80048; 80053; 81003; 83605; 83735; 84484; 84703; 85025; 85651; 86140; 86160; 86162; 86235; 86255; 86376; 87426; 93005; 93975; 96361; 96374; 99285; G0378; J2405; J7030

== ENCOUNTER 2021-12-14 12:00 | Outpatient (CLI) | payer BC, SELFPAY | END 2021-12-14 12:01 | disposition home or self-care (01) | LOC: SLEEP 12-15 08:14 | PROVIDERS: PCP Family Medicine; Visit Provider Family Medicine | DX: G47.10 Hypersomnia, unspecified (principal) | CPT/HCPCS: G0399 ==